=== PATIENT | female | born 1970 | race Caucasian/White ===

== ENCOUNTER 2020-02-16 09:41 | Emergency (ER) | payer OTHER, SELFPAY ==
[2020-02-16] MEDS ORDERED: Ketorolac Tromethamine 30 MG/ML VIAL ONE (10:22)
== END 2020-02-16 10:43 | disposition home or self-care (01) ==
LOC: BURERS 09:41
DX: U07.1 COVID-19 (principal); M79.605 Pain in left leg; M79.604 Pain in right leg
CPT/HCPCS: 96372; 99283; J1885